=== PATIENT | female | born 1995 | race Caucasian/White ===

== ENCOUNTER 2019-01-18 23:18 | Emergency (ER) | payer OTHER ==
[~2019-01-18] VITALS: Ht 165.1 cm; Wt 52.2 kg
[2019-01-19] MEDS ORDERED: DUI500 PO (01:04)
[2019-01-19] MEDS ORDERED: ZYNCOF 20-400120 ML PO (01:04)
== END 2019-01-19 01:14 | disposition home or self-care (01) ==
LOC: ER 23:18
DX: J03.80 Acute tonsillitis due to other specified organisms (principal)